=== PATIENT | female | born 1995 | race Caucasian/White ===

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

== ENCOUNTER 2017-04-30 15:41 | Emergency (ER) | payer BC, OTHER ==
[~2017-04-30] VITALS: Ht 172.7 cm; Wt 66.6 kg
[2017-04-30 15:45] VITALS: TEMP 36.9; Ht 172.7 cm; Wt 66.6 kg
[2017-04-30] MEDS ORDERED: SODIUM CHLORIDE 0.9% 1000ML 1,000 ML IV STA (16:00)
[2017-04-30] MEDS ORDERED: FLUO40CA8 PO (16:12)
[2017-04-30] MEDS ORDERED: BCPILLS PO (16:12)
--- NOTE | 2017-04-30 16:12 | EMERGENCY ROOM VISIT NOTE ---
ED Visit Note First contact with patient: 15:50 Tachycardic CHIEF COMPLAINT: Syncope, cough and congestion HISTORY OF PRESENTING ILLNESS: This is a 21-year-old female who presents to the emergency department with complaint of syncopal episodes this morning. She states she has been sick with cough and cold symptoms for the past 2-3 days, feeling congested and having a sore throat, and also having some body aches. She denies any fevers or chills, she states this morning that she was standing in line for breakfast in the dining commons, when she started to feel very lightheaded, hot and nauseated, she states that her vision went black and then her body went limp and her boyfriend caught her. She states that she was still able to hear him speaking, so she did not go completely unconscious, afterwards she continued to feel very lightheaded and nauseated, vomited 1. She has had 2 additional episodes of feeling very lightheaded and nearly passing out since that time. She did eat something and had some Gatorade and has been feeling better. She states she is still feeling a little bit weak and is concerned because she has a history of anemia. She denies any further lightheadedness, or persistent nausea at this time. She denies any chest pain or shortness of breath before or after her syncopal episodes. She reports a history of iron deficiency anemia that she receives iron infusions for, she states she was admitted to the hospital once for severe anemia but did not receive blood transfusions. She denies any recent long travels, leg pain or swelling, cough, hemoptysis, or history of blood clots. She does take oral contraceptives. She denies any symptoms of headaches, neck pain or stiffness, recent vomiting or diarrhea, urinary symptoms, or rash. REVIEW OF SYSTEMS: A complete 10 point review of systems was reviewed with the patient with pertinent positives and negatives as per history of present illness. All else were negative. PAST MEDICAL HISTORY: Anemia, depression SOCIAL HISTORY: Lives at home. [employer] student. Denies tobacco use, admits to occasional alcohol and marijuana use. ALLERGIES: Reviewed in chart. PHYSICAL EXAM: CONSTITUTIONAL: Pleasant and cooperative. No acute distress. Mildly dehydrated , but otherwise well appearing and well nourished. HEENT: Normocephalic, atraumatic. Pupils equal, round and reactive to light, EOMI. TMs normal. Pharynx normal. Tacky mucous membranes. NECK: Supple, full active range of motion without discomfort. No cervical adenopathy. RESPIRATORY: Clear to auscultation bilaterally with no wheezing, crackles, rhonchi or stridor. Equal expansion bilaterally. CARDIOVASCULAR: Regular rate and rhythm with no murmurs, rubs or gallops. Normal peripheral perfusion. No edema. GASTROINTESTINAL: Soft, nontender, nondistended. No palpable masses or HSM. Bowel sounds present in all quadrants. MUSCULOSKELETAL: Full range of motion of all joints without discomfort. INTEGUMENTARY: No rash or other significant dermatologic conditions noted. NEUROLOGIC: Alert and oriented X 4 with normal affect. Cranial nerves II-XII grossly intact, no facial droop. No pronator drift. No focal neurologic deficits noted. Normal strength and sensation in all 4 extremities. Normal speech. Normal gait observed. Negative Romberg. ED COURSE AND MEDICAL DECISION MAKING: CC: Patient presenting with complaint of near syncope DIFFERENTIAL DIAGNOSIS: Includes, but not limited to orthostatic, vasovagal, dehydration, electrolyte abnormality, anemia, cardiac dysrhythmia, PE, viral URI , sinusitis, influenza, , among others. INTERPRETATION OF LABS: No leukocytosis, no anemia, no significant electrolyte abnormalities, normal renal function, normal liver enzymes. TSH within normal limits. Negative d-dimer. Influenza A/B is negative. UA is negative for infection. Negative urine . EKG: Shows normal sinus rhythm with a rate of 82 bpm with no acute ischemic changes noted by my interpretation. No previous EKG available for comparison. MEDICATION RECONCILIATION: I attest that I have personally reviewed the patient 's current medication list. INITIAL VITAL SIGNS REVIEW: I reviewed the patient's initial vital signs and interpret them as follows: T: Afebrile; BP: Normotensive; HR: Tachycardic; RR : Within normal limits; Pulse Ox: Within normal limits on room air. Blood pressure screening: The patient was found to have normal blood pressure on screening and does not require follow-up for repeat blood pressure check. SUMMARY: Patient was evaluated at bedside, history and physical exam performed. Patient is alert and oriented, in no acute distress, resting in stretcher. She appears mildly dehydrated, but is otherwise well-appearing. Neurologic exam is normal with no focal deficits and her balance is intact. Heart and lung exam is normal, normal peripheral perfusion and no edema. Given her tachycardia, oral contraceptive use, and multiple episodes of near syncope, a d-dimer was performed to evaluate for PE. EKG reviewed at bedside showing normal sinus rhythm with no acute changes. Orders were placed at bedside for labs, UA and urine , influenza, IV fluids for hydration. Patient discussed with Dr. Roa, who agrees with my assessment and plan. Labs and imaging reviewed as above, unremarkable. D-dimer is negative and I have low suspicion for PE. Orthostatic vital signs are negative. IV fluids were given as a precaution for possible dehydration given her recent illness. Patient reassessed multiple times throughout ED stay, she reports that she is feeling much better after IV fluids, states that she no longer feels weak and has not had any lightheadedness or dizziness. She has been up ambulating around without difficulty as well. She is tolerating PO fluids without difficulty. Tachycardia resolved after IV fluids. Patient was updated on all results and plan for discharge, she was encouraged to follow closely with her PCP if her symptoms return or persist. Patient was also given strict return precautions should her symptoms worsen, she verbalized understanding. Patient was discharged home in stable condition and ambulatory. Current/Historical Medications Scheduled Control Pills ( Control Pills), 1 TAB PO HS Fluoxetine (Prozac), 40 MG PO HS Allergies Coded Allergies: Ondansetron (Verified Allergy, Intermediate, Increased nausea, 04/30/17) Vital Signs Date Time Temp Pulse Resp B/P (MAP) Pulse Ox O2 Delivery O2 Flow Rate FiO2 04/30/17 18:01 81 24 110/63 94 04/30/17 17:13 80 16 120/50 96 Room Air 04/30/17 16:25 99 Room Air 04/30/17 16:21 86 04/30/17 16:15 111 121/63 96 115/66 107 114/70 04/30/17 15:45 36.9 95 16 132/79 98 Room Air Laboratory Results 04/30/17 16:20 Red Blood Count 4.69, Mean Corpuscular Volume 82.7, Mean Corpuscular Hemoglobin 27.7, Mean Corpuscular Hemoglobin Concent 33.5, Mean Platelet Volume 9.7, Neutrophils (%) (Auto) 72.9, Lymphocytes (%) (Auto) 14.3, Monocytes (%) (Auto) 11.8, Eosinophils (%) (Auto) 0.6, Basophils (%) (Auto) 0.3, Neutrophils # (Auto ) 4.90, Lymphocytes # (Auto) 0.96, Monocytes # (Auto) 0.79, Eosinophils # (Auto ) 0.04, Basophils # (Auto) 0.02 04/30/17 16:20 Test 04/30/17 16:15 04/30/17 16:20 04/30/17 16:30 Urine Color DK YELLOW Urine Appearance CLEAR (CLEAR) Urine pH 5.5 (4.5-7.5) Urine Specific [place] 1.020 (1.000-1.030) Urine Protein NEG (NEG) Urine Glucose (UA) NEG (NEG) Urine Ketones TRACE (NEG) Urine Occult Blood NEG (NEG) Urine Nitrite NEG (NEG) Urine Bilirubin NEG (NEG) Urine Urobilinogen NEG (NEG) Urine Leukocyte Esterase NEG (NEG) Urine Test NEG (NEG) White Blood Count 6.72 K/uL (4.8-10.8) Red Blood Count 4.69 M/uL (4.2-5.4) Hemoglobin 13.0 g/dL (12.0-16.0) Hematocrit 38.8 % (37-47) Mean Corpuscular Volume 82.7 fL (80-100) Mean Corpuscular Hemoglobin 27.7 pg (25-34) Mean Corpuscular Hemoglobin Concent 33.5 g/dl (32-36) Platelet Count 251 K/uL (130-400) Mean Platelet Volume 9.7 fL (7.4-10.4) Neutrophils (%) (Auto) 72.9 % Lymphocytes (%) (Auto) 14.3 % Monocytes (%) (Auto) 11.8 % Eosinophils (%) (Auto) 0.6 % Basophils (%) (Auto) 0.3 % Neutrophils # (Auto) 4.90 K/uL (1.4-6.5) Lymphocytes # (Auto) 0.96 K/uL (1.2-3.4) Monocytes # (Auto) 0.79 K/uL (0.11-0.59) Eosinophils # (Auto) 0.04 K/uL (0-0.5) Basophils # (Auto) 0.02 K/uL (0-0.2) RDW Standard Deviation 46.4 fL (36.4-46.3) RDW Coefficient of Variation 15.5 % (11.5-14.5) Immature Granulocyte % (Auto) 0.1 % Immature Granulocyte # (Auto) 0.01 K/uL (0.00-0.02) D-Dimer 280 ug/L FEU (0-500) Anion Gap 8.0 mmol/L (3-11) Est Creatinine Clear Calc Drug Dose 90.3 ml/min Estimated GFR () 93.5 Estimated GFR (Non- 80.6 BUN/Creatinine Ratio 7.4 (10-20) Bedside Glucose 142 mg/dl (70-90) Calcium Level 8.4 mg/dl (8.5-10.1) Total Bilirubin 0.3 mg/dl (0.2-1) Direct Bilirubin 0.1 mg/dl (0-0.2) Aspartate Amino Transf (AST/SGOT) 21 U/L (15-37) Alanine Aminotransferase (ALT/SGPT) 23 U/L (12-78) Alkaline Phosphatase 93 U/L (45-117) Total Protein 7.6 gm/dl (6.4-8.2) Albumin 3.4 gm/dl (3.4-5.0) Thyroid Stimulating Hormone (TSH) 0.984 uIu/ml (0.300-4.500) Influenza Type A Antigen Neg for Influ A (NEG) Influenza Type B Antigen Neg for Influ B (NEG) Medications Administered Medications (Trade) Dose Ordered Sig/Max Route Start Time Stop Time Status Last Admin Dose Admin Sodium Chloride 1,000 ml @ 999 mls/hr Q1H1M STAT IV 04/30/17 16:00 04/30/17 17:00 DC 04/30/17 16:31 999 MLS/HR Departure Information Impression Primary Impression: Pre-syncope Additional Impression: Acute viral sinusitis Dispostion Home / Self-Care Condition GOOD Referrals No Doctor, Assigned (PCP) [facility] Services Patient Instructions ED Near Syncope Vasovagal, My [facility] Additional Instructions You have been treated in the Emergency Department your dizziness and fainting spells. Laboratory results and imaging studies have ruled out any emergent causes for your symptoms which would warrant admission or surgery. You tested negative for influenza today. It is suspected that you have a viral sinus infection. Antibiotics are not indicated for a viral infection. For headache/sinus pain or fevers, you can use the following [id number] medicines (if >12 yo): - Regular strength (325mg/tab) Tylenol (acetaminophen) 2 tabs every 4-6 hours as needed. Do not exceed 10 tablets in a 24 hour period. Avoid taking more than 3000 mg of Tylenol per day. This includes any other sources of acetaminophen you may take on a regular basis. - Regular strength (200 mg/tab) Advil (ibuprofen) 3 tabs every 6-8 hours as needed. Do not exceed a dose of 2400 mg per day. Drink plenty of fluids to stay well hydrated. For acute sinus congestion, you may use pseudoephedrine (Sudafed)--you should obtain this from the pharmacist from behind the counter. Use as directed and not for more than 3 days in a row. You may also use Afrin nasal spray 1-2 sprays to both nostrils every 12 hours for the next 2-3 days to help with severe congestion of your nasal passages. Use warm salt water gargles and drink warm tea to help soothe your throat. Use saline nasal spray to help keep your nasal passages moist and help reduce inflammation. You may also try nasal Flonase or nasal next, 2 sprays to each nostril once a day to help reduce nasal inflammation and drainage. Follow-up with [facility] this week for re-evaluation, or sooner if your symptoms are worsening. If you continue to get dizzy spells, you should also have this evaluated further by your PCP. If your symptoms have not improved at all after 1 week, you may need antibiotics to clear up your infection. Return to emergency department if you develop symptoms of difficulty breathing, wheezing, chest pain, increased pain or difficulty swallowing, fevers > 101.5, severe dizziness or passing out, severe headache, or any other concerns. Problem Qualifiers
[2017-04-30 16:25] VITALS: O2SAT 99
[2017-04-30 16:29] LABS: BASO % 0.3 %; BASO ABS # 0.02 K/uL (0-0.2); EOS % 0.6 %; EOS ABS # 0.04 K/uL (0-0.5); HEMATOCRIT 38.8 % (37-47); IG# 0.01 K/uL (0.00-0.02); LYMPH % 14.3 %; LYMPH ABS # 0.96 K/uL (1.2-3.4); MEAN CELL VOLUME 82.7 fL (80-100); MEAN CORPUSCULAR HEMOGLOBIN 27.7 pg (25-34); MEAN CORPUSCULAR HGB CONC 33.5 g/dl (32-36); MEAN PLATELET VOLUME 9.7 fL (7.4-10.4); MONO % 11.8 %; MONO ABS # 0.79 K/uL (0.11-0.59); NEUT % 72.9 %; PLATELET COUNT 251 K/uL (130-400); RED CELL DISTRIBUTION WIDTH CV 15.5 % (11.5-14.5); RED CELL DISTRIBUTION WIDTH SD 46.4 fL (36.4-46.3); WHITE BLOOD COUNT 6.72 K/uL (4.8-10.8)
[2017-04-30 16:46] LABS: ALBUMIN 3.4 gm/dl (3.4-5.0); CALCIUM 8.4 mg/dl (8.5-10.1); CREATININE 1.01 mg/dl (0.60-1.20); POTASSIUM 3.6 mmol/L (3.5-5.1)
[2017-04-30 16:56] LABS: TOTAL PROTEIN 7.6 gm/dl (6.4-8.2)
[2017-04-30 17:01] LABS: INFLUENZA B ANTIGEN Neg for Influ B (NEG)
[2017-04-30 18:01] VITALS: BP 110/63; PULSE 81; O2SAT 94
== END 2017-04-30 18:01 | disposition home or self-care (01) ==
LOC: C.EDB 15:42 → C.EDA 18:01
DX: R55 Syncope and collapse (principal); J01.90 Acute sinusitis, unspecified; F32.9 Major depressive disorder, single episode, unspecified; D50.9 Iron deficiency anemia, unspecified; F12.90 Cannabis use, unspecified, uncomplicated; E86.0 Dehydration; Z79.3 Long term (current) use of hormonal contraceptives; Z79.899 Other long term (current) drug therapy; Z88.8 Allergy status to other drugs, medicaments and biological substances

== ENCOUNTER 2020-04-28 13:38 | Inpatient (IN) ==
[2020-04-28 14:31] LABS: Basophils # (auto) 0.03 K/uL (0-0.2); Basophils % (auto) 0.4 %; Eosinophils # (auto) 0.13 K/uL (0-0.5); Eosinophils % (auto) 1.9 %; Hematocrit (blood only) 36.1 % (37-47); Hemoglobin 11.7 g/dL (12.0-16.0); Lymphocytes # (auto) 1.29 K/uL (1.2-3.4); Lymphocytes % (auto) 19.2 %; Mean Corpuscular Hemoglobin 23.8 pg (25-34); Mean Corpuscular Hgb Conc 32.4 g/dL (32-36); Mean Corpuscular Volume 73.4 fL (80-100); Mean Platelet Volume 10.3 fL (7.4-10.4); Monocytes # (auto) 0.57 K/uL (0.11-0.59); Monocytes % (auto) 8.5 %; Neutrophils # (auto) 4.71 K/uL (1.4-6.5); Platelet Count 305 K/uL (130-400); RDW Coefficient of Variation 16.5 % (11.5-14.5); RDW Standard Deviation 44.6 fL (36.4-46.3); Red Blood Count 4.92 M/uL (4.2-5.4); White Blood Count 6.73 K/uL (4.8-10.8)
--- NOTE | 2020-04-28 14:36 | Emergency Department Note ---
Impression & Plan Suicidal ideation, Mood disorder ED Provider Note NAME: ADRIANA GARCIA AGE: 24 SEX: F : 1995 ARRIVES VIA: Walk-In INFORMANT: Patient ED PROVIDER(S): Sarwat Castro DO CHIEF COMPLAINT: Suicidal ideations with plan to overdose HPI: Patient is a 22-year-old female with a past medical history of depression and anxiety. She currently takes Prozac 60 mg. She has not missed any doses. She has a therapist and a psychiatrist as an outpatient. She has been feeling more depressed over the past month. Recently she has been thinking of overdosing killing herself. She does not feel safe at home. She does want to come and get help. Mom is at bedside and agrees. Patient does admit to getting sick to the stomach last night and very nauseated. She passed out. She has no other complaints. She has had this happen before. She denies any headache or change in vision. No chest pain or shortness of breath. No nausea, vomiting or diarrhea. No dysuria, urgency, or frequency. Last menstrual period was 3 weeks ago and appropriate time. ROS: See above HPI for pertinent positives & negatives. A total of 10 systems reviewed and were otherwise negative. PAST MEDICAL HISTORY:Depression and anxiety PAST SURGICAL HISTORY:None FAMILY HISTORY:Bipolar SOCIAL HISTORY:See Below HOME MEDICATIONS:See Below ALLERGIES:See Below VITALS:See Below PHYSICAL EXAMINATION: GENERAL: Sitting up in bed, alert, well appearing, well nourished, no distress, non-toxic EYE EXAM: normal conjunctiva. PERRL and EOM's intact. OROPHARYNX: no exudate, no erythema, lips, buccal mucosa, and tongue normal and mucous membranes are moist NECK: supple, no nuchal rigidity, no adenopathy, non-tender LUNGS: Clear to auscultation. Normal chest wall mechanics HEART: no murmurs, S1 normal and S2 normal ABDOMEN: abdomen soft, non-tender, normo-active bowel sounds, no masses, no rebound or guarding. UPPER EXTREMITIES: upper extremities are grossly normal. LOWER EXTREMITIES: No pitting edema. NEURO EXAM: Normal sensorium, cranial nerves II-XII intact, normal speech, no weakness of arms, no weakness of legs. No drift. Finger to nose intact. Gross sensation intact. Rapid alternating movements of upper extremities intact. [id number] intact. PSYCH: Admits to suicidal ideations with a plan to overdose. Denies any auditory visual hallucinations. MEDICAL DECISION MAKING: Patient is a 22-year-old female who presents to the ER for suicidal ideations w ith a plan to overdose. Labs show no significant leukocytosis and mild anemia 11.7. BMP with LFTs bilirubin and troponin was negative. TSH was unremarkable. UA was negative. was negative. Covid was negative. Salicylates and Tylenol was negative. Marijuana was positive. Patient is medically stable. Patient was signed out to Dr. Painter at the change of shift awaiting placement from bed search. Observation Status: Indication: Medical clearance and psychiatric placement Patient with a family history of bipolar, was seen first at 1350 hrs and was necessary in order to determine medical stability and avoid unnecessary adm ission. Upon reevaluation, 4.5 hours of observation revealed that the patient should be placed in a psychiatric facility patient was signed out to Dr. Painter at the change of shift. Disposition date and time 04/28/20 st 6pm. Triage Nursing notes reviewed. Limited review of prior medical records performed Vital Signs: reviewed and remarkable for no significant abnormalities Differential diagnosis: Differential diagnoses includes but is not limited to gastritis, peptic ulcer disease, GERD, gallbladder disease, pancreatitis, small bowel obstruction, acute coronary syndrome, pericarditis, ischemic bowel, irritable bowel disease, irritable bowel syndrome, appendicitis, diverticulitis, malignancy, hernia, urinary tract infection, torsion, /ectopic (if female), perforation, trauma, infectious. ER treatment provided: See below Diagnostics interpreted by me: ECG: none Laboratory studies: As stated above and show below. Imaging studies: See below Consultation(s): none Procedures: none Critical Care: None Past Med/Surg History Social History Smoking Status: Current every day smoker Preferred Language: Citizen Of [place] Feels Safe at Home: Yes Allergies Allergies Allergy/AdvReac Type Severity Reaction Status Date / Time ondansetron Allergy Intermediate Increased Verified 10/12/17 18:18 nausea amoxicillin Allergy Unknown Unverified 10/12/17 18:18 clavulanic acid Allergy Unknown Unverified 10/12/17 18:18 Home Meds Home Medications Medication Instructions Recorded Confirmed fluoxetine [Prozac] 60 mg PO DAILY 04/28/20 04/28/20 trazodone 50 mg PO HS 04/28/20 04/28/20 Results & Data (ED) Vital Signs Vital Signs - 24 hr 04/28/20 13:40 Temperature 37.3 C Temperature Source Temporal Artery Scan Pulse Rate 95 H Respiratory Rate 16 Respiratory Effort / Characteristics Non-Labored Spontaneous Respiratory Depth Normal Blood Pressure 148/91 H Blood Pressure Mean 110 Blood Pressure Position Sitting Pulse Oximetry 98 Oxygen Delivery Method Room Air Sepsis Recent Fever Within 48 Hours No Sepsis New/Unexplained Change in Mental Status No Sepsis Action Taken by Nursing No Action Required Laboratory Data Result diagrams: 04/28/20 14:12 04/28/20 14:12 Lab Results 04/28/20 04/28/20 04/28/20 Range/Units 13:55 13:55 14:12 WBC 6.73 (4.8-10.8) K/uL RBC 4.92 (4.2-5.4) M/uL Hgb 11.7 L (12.0-16.0) g/dL Hct 36.1 L (37-47) % MCV 73.4 L (80-100) fL MCH 23.8 L (25-34) pg MCHC 32.4 (32-36) g/dL RDW Std Deviation 44.6 (36.4-46.3) fL RDW Coeff of Javad 16.5 H (11.5-14.5) % Plt Count 305 (130-400) K/uL MPV 10.3 (7.4-10.4) fL Immature Gran % (Auto) 0.0 % Neut % (Auto) 70.0 % Lymph % (Auto) 19.2 % Luce % (Auto) 8.5 % Eos % (Auto) 1.9 % Baso % (Auto) 0.4 % Neut # (Auto) 4.71 (1.4-6.5) K/uL Lymph # (Auto) 1.29 (1.2-3.4) K/uL Luce # (Auto) 0.57 (0.11-0.59) K/uL Eos # (Auto) 0.13 (0-0.5) K/uL Baso # (Auto) 0.03 (0-0.2) K/uL Immature Gran # (Auto) 0.00 (0.00-0.02) K/uL Sodium (136-145) mmol/L Potassium (3.5-5.1) mmol/L Chloride (98-107) mmol/L Carbon Dioxide (21-32) mmol/L Anion Gap (3-11) BUN (7-18) mg/dl Creatinine (0.6-1.2) mg/dl Est Cr Clr Drug Dosing ml/min Est GFR ( Amer) Est GFR (Non-Af Amer) BUN/Creatinine Ratio (10-20) Glucose (70-99) mg/dl Calcium (8.5-10.1) mg/dl Total Bilirubin (0.2-1) mg/dl AST (15-37) U/L ALT (12-78) U/L Alkaline Phosphatase (45-117) U/L Troponin I (0-0.045) ng/ml Total Protein (6.4-8.2) gm/dl Albumin (3.4-5.0) gm/dl Globulin (2.5-4.0) gm/dl Albumin/Globulin Ratio (0.9-2) TSH (0.300-4.500) uIu/ml Urine Color Yellow Urine Appearance Clear (Clear) Urine pH 8.5 H (4.5-7.5) Ur Specific [place] 1.007 (1.000-1.030) Urine Protein Negative (Negative) Urine Glucose (UA) Negative (Negative) Urine Ketones Negative (Negative) Urine Blood Negative (Negative) Urine Nitrite Negative (Negative) Urine Bilirubin Negative (Negative) Urine Urobilinogen Negative (Negative) Ur Leukocyte Esterase Negative (Negative) Salicylates (2.8-20) mg/dl Urine Opiates Screen Neg (Neg) Ur Methadone, Qual Neg (Neg) Acetaminophen (10-30) ug/ml Urine Barbiturates Neg (Neg) Ur Phencyclidine (PCP) Neg (Neg) U Amphetamin/Meth Scrn Neg (Neg) MDMA (Ecstasy) Screen Neg (Neg) U Benzodiazepines Scrn Neg (Neg) Ur Cocaine Metabolite Neg (Neg) U Marijuana (THC) Screen Pos H (Neg) Ethyl Alcohol mg/dL (0-3) mg/dl SARS-CoV-2 Ag (Rapid) (Negative) 04/28/20 04/28/20 04/28/20 Range/Units 14:12 14:12 14:12 WBC (4.8-10.8) K/uL RBC (4.2-5.4) M/uL Hgb (12.0-16.0) g/dL Hct (37-47) % MCV (80-100) fL MCH (25-34) pg MCHC (32-36) g/dL RDW Std Deviation (36.4-46.3) fL RDW Coeff of Javad (11.5-14.5) % Plt Count (130-400) K/uL MPV (7.4-10.4) fL Immature Gran % (Auto) % Neut % (Auto) % Lymph % (Auto) % Luce % (Auto) % Eos % (Auto) % Baso % (Auto) % Neut # (Auto) (1.4-6.5) K/uL Lymph # (Auto) (1.2-3.4) K/uL Luce # (Auto) (0.11-0.59) K/uL Eos # (Auto) (0-0.5) K/uL Baso # (Auto) (0-0.2) K/uL Immature Gran # (Auto) (0.00-0.02) K/uL Sodium 136 (136-145) mmol/L Potassium 4.0 (3.5-5.1) mmol/L Chloride 106 (98-107) mmol/L Carbon Dioxide 25 (21-32) mmol/L Anion Gap 5.0 (3-11) BUN 6 L (7-18) mg/dl Creatinine 0.71 (0.6-1.2) mg/dl Est Cr Clr Drug Dosing 125.4 ml/min Est GFR ( Amer) 140.1 Est GFR (Non-Af Amer) 120.9 BUN/Creatinine Ratio 7.8 L (10-20) Glucose 84 (70-99) mg/dl Calcium 9.6 (8.5-10.1) mg/dl Total Bilirubin 0.5 (0.2-1) mg/dl AST 11 L (15-37) U/L ALT 16 (12-78) U/L Alkaline Phosphatase 94 (45-117) U/L Troponin I (0-0.045) ng/ml Total Protein 7.6 (6.4-8.2) gm/dl Albumin 4.0 (3.4-5.0) gm/dl Globulin 3.6 (2.5-4.0) gm/dl Albumin/Globulin Ratio 1.1 (0.9-2) TSH 1.120 (0.300-4.500) uIu/ml Urine Color Urine Appearance (Clear) Urine pH (4.5-7.5) Ur Specific [place] (1.000-1.030) Urine Protein (Negative) Urine Glucose (UA) (Negative) Urine Ketones (Negative) Urine Blood (Negative) Urine Nitrite (Negative) Urine Bilirubin (Negative) Urine Urobilinogen (Negative) Ur Leukocyte Esterase (Negative) Salicylates < 1.7 L (2.8-20) mg/dl Urine Opiates Screen (Neg) Ur Methadone, Qual (Neg) Acetaminophen < 2 L (10-30) ug/ml Urine Barbiturates (Neg) Ur Phencyclidine (PCP) (Neg) U Amphetamin/Meth Scrn (Neg) MDMA (Ecstasy) Screen (Neg) U Benzodiazepines Scrn (Neg) Ur Cocaine Metabolite (Neg) U Marijuana (THC) Screen (Neg) Ethyl Alcohol mg/dL < 3.0 (0-3) mg/dl SARS-CoV-2 Ag (Rapid) (Negative) 04/28/20 04/28/20 Range/Units 14:12 14:34 WBC (4.8-10.8) K/uL RBC (4.2-5.4) M/uL Hgb (12.0-16.0) g/dL Hct (37-47) % MCV (80-100) fL MCH (25-34) pg MCHC (32-36) g/dL RDW Std Deviation (36.4-46.3) fL RDW Coeff of Javad (11.5-14.5) % Plt Count (130-400) K/uL MPV (7.4-10.4) fL Immature Gran % (Auto) % Neut % (Auto) % Lymph % (Auto) % Luce % (Auto) % Eos % (Auto) % Baso % (Auto) % Neut # (Auto) (1.4-6.5) K/uL Lymph # (Auto) (1.2-3.4) K/uL Luce # (Auto) (0.11-0.59) K/uL Eos # (Auto) (0-0.5) K/uL Baso # (Auto) (0-0.2) K/uL Immature Gran # (Auto) (0.00-0.02) K/uL Sodium (136-145) mmol/L Potassium (3.5-5.1) mmol/L Chloride (98-107) mmol/L Carbon Dioxide (21-32) mmol/L Anion Gap (3-11) BUN (7-18) mg/dl Creatinine (0.6-1.2) mg/dl Est Cr Clr Drug Dosing ml/min Est GFR ( Amer) Est GFR (Non-Af Amer) BUN/Creatinine Ratio (10-20) Glucose (70-99) mg/dl Calcium (8.5-10.1) mg/dl Total Bilirubin (0.2-1) mg/dl AST (15-37) U/L ALT (12-78) U/L Alkaline Phosphatase (45-117) U/L Troponin I < 0.015 (0-0.045) ng/ml Total Protein (6.4-8.2) gm/dl Albumin (3.4-5.0) gm/dl Globulin (2.5-4.0) gm/dl Albumin/Globulin Ratio (0.9-2) TSH (0.300-4.500) uIu/ml Urine Color Urine Appearance (Clear) Urine pH (4.5-7.5) Ur Specific [place] (1.000-1.030) Urine Protein (Negative) Urine Glucose (UA) (Negative) Urine Ketones (Negative) Urine Blood (Negative) Urine Nitrite (Negative) Urine Bilirubin (Negative) Urine Urobilinogen (Negative) Ur Leukocyte Esterase (Negative) Salicylates (2.8-20) mg/dl Urine Opiates Screen (Neg) Ur Methadone, Qual (Neg) Acetaminophen (10-30) ug/ml Urine Barbiturates (Neg) Ur Phencyclidine (PCP) (Neg) U Amphetamin/Meth Scrn (Neg) MDMA (Ecstasy) Screen (Neg) U Benzodiazepines Scrn (Neg) Ur Cocaine Metabolite (Neg) U Marijuana (THC) Screen (Neg) Ethyl Alcohol mg/dL (0-3) mg/dl SARS-CoV-2 Ag (Rapid) Negative (Negative) Discharge Plan Visit Data Chief Complaint: Mental Health Evaluation Stated Complaint: MENTAL HEALTH EVALUATION ED Provider: Darryl Painter Discharge Problem: Suicidal ideation, Mood disorder Forms Stand Alone Forms: My [facility], Suicide Prevention Resources Prescriptions Prescriptions: No Action fluoxetine [Prozac] 20 mg Capsule 60 mg PO DAILY RF: 0 trazodone 50 mg Tablet 50 mg PO HS RF: 0
[2020-04-28 14:47] LABS: BUN Creatinine Ratio 7.8 (10-20); Calcium 9.6 mg/dl (8.5-10.1); Creatinine Clr Calc Pharmacy 125.4 ml/min; Est GFR (African American) 140.1; Est GFR (Non-African American) 120.9
[2020-04-28 14:52] LABS: Acetaminophen < 2 ug/ml (10-30); Salicylate < 1.7 mg/dl (2.8-20)
[2020-04-28 14:52] LABS: Appearance Urine Clear (Clear); Bilirubin Urine Negative (Negative); Blood Urine Negative (Negative); Color Urine Yellow; Glucose Urine UA Negative (Negative); Ketones Urine Negative (Negative); Leukocyte Esterase Urine Negative (Negative); Nitrite Urine Negative (Negative); Protein Urine Negative (Negative); Specific Gravity Urine 1.007 (1.000-1.030); Urobilinogen Urine Negative (Negative); pH Urine 8.5 (4.5-7.5)
[2020-04-28 14:57] LABS: Albumin Globulin Ratio 1.1 (0.9-2); Bilirubin,Total 0.5 mg/dl (0.2-1); Globulin 3.6 gm/dl (2.5-4.0); Thyroid Stimulating Hormone 1.12 uIu/ml (0.300-4.500); Total Protein 7.6 gm/dl (6.4-8.2)
[2020-04-28 15:35] LABS: Amphetamines+Metham, Urine Neg (Neg); Barbiturates, Urine Neg (Neg); Benzodiazepine, Urine Neg (Neg); Cocaine, Urine Neg (Neg); MDMA (Ecstacy), Urine Neg (Neg); Methadone, Urine Neg (Neg); Opiate, Urine Neg (Neg); Phencyclidine, Urine Neg (Neg)
--- NOTE | 2020-04-28 17:50 | Emergency Department Note ---
ED Visit Note The patient was taken in signout from DR. Castro at the change of shift. Please see that note for details. The patient was pending voluntary psychiatric admission. Bed search in progress. Patient was without complaints On rounding. She was signed out to Dr. Randle At the change of shift. .
[2020-04-28] MEDS ORDERED: traZODone HCL 50 MG TAB PO ONE (21:12)
[2020-04-28] MEDS ORDERED: NICOTINE 14 MG/24 HR PATCH TD STA (21:12)
[2020-04-29] MEDS ORDERED: FLUoxetine HCL 10 MG CAP PO STA (06:06)
--- NOTE | 2020-04-29 06:06 | Emergency Department Note ---
ED Visit Note This case was signed out to me at change of shift. The patient is willing to admit herself voluntarily. However, she is requesting to only be admitted here at 3 [address]. They are anticipating discharge in the morning and will evaluate her at that time. Her morning medications were ordered. The case will be signed out to Dr. Haider awaiting final disposition. .
--- NOTE | 2020-04-29 06:34 | Electrocardiogram Report ---
Test Reason : Blood Pressure : / mmHG Vent. Rate : 069 BPM Atrial Rate : 069 BPM P-R Int : 146 ms QRS Dur : 106 ms QT Int : 390 ms P-R-T Axes : 057 064 051 degrees QTc Int : 417 ms Normal sinus rhythm with sinus arrhythmia Normal ECG When compared with ECG of 30-APR-2017 16:11, No significant change was found Confirmed by Gonzales Trevino ([id number]) on 04/29/2020 6:34:10 AM Referred By: REFERRED SELF Confirmed By:Gonzales Trevino
--- NOTE | 2020-04-29 07:07 | Emergency Department Note ---
ED Visit Note I assumed care at the change of shift, Dr. Randle had been the physician just prior to me. A bed search was underway. The patient has been accepted voluntarily to our hospital psychiatric floor, 3 [address]. She is being transferred upstairs. .
[2020-04-29] MEDS ORDERED: ALUMINUM/MAGNESIUM SUSP 30 ML UDC PO PRN (11:42)
[2020-04-29] MEDS ORDERED: ACETAMINOPHEN 325 MG TAB PO PRN (11:42)
[2020-04-29] MEDS ORDERED: SODIUM CHLORIDE 0.65% NA SOLN 45 ML (OCEAN) PRN (11:42)
[2020-04-29] MEDS ORDERED: hydrOXYzine HCl 25 MG TAB PO PRN ×2 (11:42)
[2020-04-29] MEDS ORDERED: MAGNESIUM HYDROXIDE SUSP 30 ML UDC PO PRN (11:42)
[2020-04-29] MEDS ORDERED: BISMUTH SUBSALICYLATE LIQD 236 ML PO PRN (11:42)
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
[2020-04-29] MEDS ORDERED: NICOTINE POLACRILEX 2 MG GUM MT PRN (14:56)
[2020-04-29] MEDS: NICOTINE 14 MG/24 HR PATCH TD SCH (15:37)
[2020-04-29] MEDS: traZODone HCL 50 MG TAB PO SCH (21:28)
[2020-04-30] MEDS: NICOTINE 14 MG/24 HR PATCH TD SCH (07:28)
--- NOTE | 2020-04-30 08:08 | Psychiatric Progress Note ---
Date of Service April 30, 2020 Impression / Recommendations Impression Slight improvement with admission and hopefulness with plan for medication changes, but ongoing SI and urges to cut. Inpatient treatment remains medically necessary due to the severity of symptoms and risk for suicide if discharged. (1) Suicidal ideation: 04/29 - Admitted to a locked inpatient behavioral health unit, on q15 minute safety checks - Encourage medication initiation/adjustments as indicated - Encourage participation in group and recreational therapies - Gather collateral information from outpatient providers - Suggest family meeting to involve outpatient supports in safety planning - Arrange appropriate aftercare (2) Depression: 04/29 - Working diagnosis of major depressive disorder, recurrent, severe, without psychotic features. Differential also includes substance-induced mood disorder (given significant marijuana use, occasional ETOH), dysthymic disorder, personality disorder, or possible bipolar II disorder (1-2 days of elevated mood every 1-2 weeks). Will request clinical information from outpatient providers and review case with patient's psychiatric prescriber. - Discussed numerous medication options with patient (augmenting current regimen with Wellbutrin/Remeron versus cross-tapering from fluoxetine to venlafaxine). Pt reported preference to discontinue fluoxetine and switch to venlafaxine. Will allow fluoxetine to self-taper, patient received last dose this morning - will initiated venlafaxine at 37.5mg tomorrow morning. Continue titration as indicated/tolerated. - Encourage participation in group and recreational programming - Assist with development of healthy and effective coping strategies - Encourage family meeting to discuss discharge and safety planning - Confirm outpatient psychiatry appointments. 04/30 -Fluoxetine discontinued yesterday, starting venlafaxine XR today, and will increase to 75mg for tomorrow. Tolerating well so far, again reviewed risks, benefits and side effects. -Pt would like family meeting with mother and boyfriend. -Work on coping skills for ongoing urges to cut. (3) Generalized anxiety disorder: 04/29 - Reported symptoms seem consistent with generalized anxiety disorder as well as panic disorder. Pt also reports symptoms that seem more consistent with OCPD with regard to perfectionistic tendencies and need for control. - Medication adjustments as above - as needed hydroxyzine for acute anxiety - Continue trazodone for sleep - Assist with development of healthy and effective coping skills. Risk Factors Assessment Do You Have Access To A Gun?: No (only in family home, locked in safe) Protective Factors Assessment Employed: No Interval History Identifying Information ADRIANA GARCIA is a 24-year-old F currently attending [employer] who lives with several roommates off campus. Pt reports a history of anxiety and depression, and was admitted on 04/29/20 11:43 on a 201 voluntary commitment for worsening depression and suicidal ideation for the past 2 weeks with plan to overdose. Chief Complaint "Still sad, but I finally found that glimmer of hope". Review of Systems Sleep Information Total Hours of Sleep: 6.5 Subjective Subjective Patient was seen & assessed and interval progress reviewed with nursing and social work. Patient reports she is working in treatment, journaling "trying to accept my emotions," and going to groups. She feels safe here, although is still having suicidal thoughts and thoughts of self harming. She denies harming herself here, as she doesn't have access to anything to cut herself with, but wants to work on healthier coping skills here. She is pleased with medication changes and feels more hopeful, denies side effects. Physical Exam Psychiatric Orientation: alert and cooperative Apperance: appropriately dressed and appeared stated age WNWD WF dressed in sweatpants and an orange sweatshirt, with long brown hair pulled back in a ponytail, nose peircing. Seated in NAD Eye Contact: + fair eye contact Motor Behavior: steady gait and station and no abnormal motor movements Speech: normal rate/rhythm/volume of speech Affect: + depressed affect and + tearful affect Mood: + depressed mood Thought Process: goal directed thought process and linear/logical thought process Thought Content: + cognitive distortions (negative thoughts about herself), + worthlessness and + self deprecation Suicidal Thoughts: + reports suicidal thoughts and urges to self injure Homicidal Thoughts: denies homicidal thoughts Hallucinations: no auditory hallucinations and no visual hallucinations Cognition: recent memory grossly intact, attention grossly intact and language grossly intact Estimated Intelligence: consistent with education level Insight: + fair insight Judgement: + fair judgement Vital Signs (Past 24 Hours) Last Vital Signs Temp 36.7 C 04/30/20 06:48 Pulse 91 H 04/30/20 06:49 Resp 16 04/30/20 06:48 BP 111/80 04/30/20 06:49 Pulse Ox 99 04/29/20 12:30 Results & Data ([facility]) Laboratory Results Laboratory Results - last 24 hr 04/28/20 13:55 POC Ur Test NEG Current Inpatient Medications Current Inpatient Medications: Current Inpatient Medications Acetaminophen (Acetaminophen 325 Mg Tab) 650 mg PO Q4H PRN PRN Reason: Headache or Minor Fever Stop: 05/29/20 11:41 Al Hydrox/Mg Hydrox/Simethicone (Aluminum/Magnesium Susp 30 Ml Udc) 30 ml PO Q4H PRN PRN Reason: GI Upset Stop: 05/29/20 11:41 Bismuth Subsalicylate (Bismuth Subsalicylate Liqd 236 Ml) 15 ml PO PRN PRN PRN Reason: Loose Stool Stop: 05/29/20 11:41 Hydroxyzine HCl (Hydroxyzine Hcl 25 Mg Tab) 50 mg PO HSZ PRN PRN Reason: Insomnia Stop: 05/29/20 11:41 Hydroxyzine HCl (Hydroxyzine Hcl 25 Mg Tab) 25 mg PO Q4H PRN PRN Reason: Anxiety Stop: 05/29/20 11:41 Magnesium Hydroxide (Magnesium Hydroxide Susp 30 Ml Udc) 30 ml PO DAILY PRN PRN Reason: Constipation Stop: 05/29/20 11:41 Miscellaneous (Remove Nicoderm Patch) 1 ea N/A DAILY@0859 [facility] Stop: 04/30/20 09:00 Last Admin: 04/30/20 07:28 Dose: 1 ea Documented by: Miscellaneous (Remove Nicoderm Patch) 1 ea N/A TODAY@1514 [facility] Stop: 04/30/20 15:15 Last Admin: 04/30/20 07:32 Dose: 1 ea Documented by: Nicotine (Nicotine 14 Mg/24 Hr Patch) 14 mg TD QAM [facility] Stop: 05/29/20 15:14 Last Admin: 04/30/20 07:28 Dose: 14 mg Documented by: Nicotine Polacrilex (Nicotine Polacrilex 2 Mg Gum) 1 piece MT PRN PRN PRN Reason: nicotine cravings Stop: 05/29/20 14:55 Sodium Chloride (Sodium Chloride 0.65% Na Soln 45 Ml ([place])) 1 - 2 sprays NA PRN PRN PRN Reason: Nasal Dryness/Congestion Stop: 05/29/20 11:41 Trazodone HCl (Trazodone Hcl 50 Mg Tab) 50 mg PO HS MUNA Stop: 05/29/20 21:59 Last Admin: 04/29/20 21:28 Dose: 50 mg Documented by: Venlafaxine HCl (Venlafaxine Hcl Xr 37.5 Mg Capxr) 37.5 mg PO QAM MUNA Stop: 05/30/20 08:59 Mental Health & Subst Abuse Tx Psychiatrist Name of Psychiatrist: Chary DIAZ Therapist Name of Therapist: Panfilo Euceda LCSW Hoop Expander Name of Hoop Expander: N/A (1) Depression Active/Remission status: currently active Depression Type: major depressive disorder Major depression episode severity: severe Major depression recurrence: recurrent Psychotic features: without psychotic features Qualified Code(s): F33.2 - Major depressive disorder, recurrent severe without psychotic features
[2020-04-30] MEDS ORDERED: VENLAFAXINE HCL XR 37.5 MG CAPXR PO SCH (09:00)
[2020-04-30] MEDS: traZODone HCL 50 MG TAB PO SCH (21:22)
[2020-05-01 08:06] LABS: Marijuana Quant, GCMS Urine 551 ng/mL (<5)
[2020-05-01] MEDS: NICOTINE 14 MG/24 HR PATCH TD SCH (08:45)
[2020-05-01] MEDS ORDERED: VENLAFAXINE HCL XR 75 MG CAPXR PO SCH (09:00)
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
[2020-05-01] MEDS: PRAZOSIN HCL 1 MG CAP PO SCH (22:00)
[2020-05-01] MEDS: traZODone HCL 50 MG TAB PO SCH (22:00)
[2020-05-02] MEDS: VENLAFAXINE HCL XR 150 MG CAPXR PO SCH (10:27)
[2020-05-02] MEDS: NICOTINE 14 MG/24 HR PATCH TD SCH (10:27)
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
[2020-05-02] MEDS: PRAZOSIN HCL 1 MG CAP PO SCH (21:43)
[2020-05-02] MEDS: traZODone HCL 50 MG TAB PO SCH (21:44)
[2020-05-03] MEDS: NICOTINE 14 MG/24 HR PATCH TD SCH (08:42)
[2020-05-03] MEDS: VENLAFAXINE HCL XR 150 MG CAPXR PO SCH (08:42)
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
== END 2020-05-03 10:53 | disposition home or self-care (01) | DRG 885 ==
LOC: ED 13:38 → 3S 04-29 11:43